=== PATIENT | female | born 1980 | race Caucasian/White ===

== ENCOUNTER 2022-09-27 14:10 | Emergency (ER) | payer SELFPAY ==
[2022-09-27 14:14] VITALS: BP 140/87; PULSE 85; RESP 18; TEMP 36.7; O2SAT 98; BMI 23.0
--- NOTE | 2022-09-27 14:20 | CT_ITS ---
The [address] [address] Patient Name: HILDA CANO MRN: [id number] date: 1980 Sex: F Assigned Patient Location: ER Current Patient Location: ER Accession/Order Number: [id number] Exam Date: 09/27/2022 14:40 Report Date: 09/27/2022 14:58 At the request of: NANCY HENDERSON Procedure: CT abdomen pelvis wo con EXAM: CT abdomen pelvis wo con HISTORY: Flank pain COMPARISON: None. TECHNIQUE: Axial CT images were obtained of the abdomen and pelvis without intravenous contrast. Multiplanar reconstructions were performed. ABDOMEN/PELVIS FINDINGS: Lower Chest: Unremarkable. Liver: Normal nonenhanced appearance and contour. Biliary/Gallbladder: Unremarkable. Pancreas: Unremarkable. Spleen: Multiple punctate calcifications are present in the spleen, likely due to remote granulomatous disease. Adrenal Glands: Unremarkable. Kidneys: Unremarkable. Gastrointestinal/Peritoneum: No acute abnormality. The appendix is unremarkable. There is a small volume of free fluid in the pelvis. Vascular: Unremarkable. Lymph Nodes: No enlarged lymph nodes by CT size criteria. Pelvic Organs: Tampon noted in the vaginal canal. The uterus is bulky in appearance. Bladder: Unremarkable. Bones: No acute osseous abnormality. Soft tissues: Unremarkable. CT/CT abdomen pelvis wo con IMPRESSION: 1. No acute abnormality of the abdomen and pelvis. 2. Tampon noted within the vaginal canal. 3. Bulky appearance of the uterus. 4. Small volume of pelvic free fluid. Electronically authenticated by: STEFANIA DOMINGUEZ Date: 09/27/2022 14:58
[2022-09-27 14:46] LABS: Bilirubin Urine SMALL (NEGATIVE); Blood Urine NEGATIVE (NEGATIVE); Clarity Urine CLEAR (CLEAR); Color Urine DK. YELLOW (YELLOW); Glucose Urine UA NEGATIVE (NEGATIVE); Ketones Urine NEGATIVE (NEGATIVE); Leukocyte Esterase Urine NEGATIVE (NEGATIVE); Nitrite Urine NEGATIVE (NEGATIVE); Protein Urine 30 mg/dL (NEG/TRACE); Specific Gravity Urine >=1.030 (1.005-1.025); pH Urine 5.5 (5.0-9.0)
[2022-09-27 14:48] LABS: Urine Microscopic Indicated YES
[2022-09-27 14:48] LABS: Basophils Absolute Auto 0.1 10^3/uL (0.0-0.1); Basophils Percent Auto 0.6 % (0.2-2.0); Eosinophils Absolute Auto 0.1 10^3/uL (0.0-0.7); Eosinophils Percent Auto 1.4 % (0.9-7.0); Hematocrit 43.6 % (36.0-48.0); Hemoglobin 14.8 g/dL (12.0-16.0); Immature Granulocytes Abs Auto 0.02 10^3/uL (0.00-0.03); Immature Granulocytes Pct Auto 0.2 % (0.0-0.5); Lymphocytes Absolute Auto 3.4 10^3/uL (1.2-3.8); Lymphocytes Percent Auto 33.9 % (20.5-60.0); Mean Corpuscular HGB Conc 33.9 g/dL (29.9-35.2); Mean Corpuscular Hemoglobin 29.9 pg (26.7-34.0); Mean Corpuscular Volume 88.1 fL (81.0-99.0); Mean Platelet Volume 9.8 fL (9.5-13.5); Monocytes Absolute Auto 0.6 10^3/uL (0.3-0.8); Monocytes Percent Auto 6.2 % (1.7-12.0); Neutrophils Absolute Auto 5.7 10^3/uL (1.4-6.5); Neutrophils Percent Auto 57.7 % (43.0-75.0); Platelet Count 363 10^3/uL (150-450); Red Blood Count 4.95 10^6/uL (4.20-5.40); Red Cell Distribution Width 13.3 % (11.0-15.0); White Blood Count 9.9 10^3/uL (4.0-11.0)
--- NOTE | 2022-09-27 14:51 | ED_ITS ---
Documented by User: ZIA Diaz 09/27/22 15:40 HPI - Abdominal Pain General Chief Complaint: Abdominal Pain Stated Complaint: LT FLANK PAIN Time Seen by Provider: 09/27/22 14:19 Source: patient Mode of arrival: walk-in Limitations: no limitations History of Present Illness HPI narrative: patient is a 41-year-old female presents to the emergency department for the evaluation of left flank pain for the last two weeks. She denies any mechanism of injury or trauma. She states pain is located in the left low back with radiation to the left side of the abdomen. She states it feels like a pinching pain. It is not worse with movement but she states when she lies flat she does have some relief. She has had no fevers, chills, nausea, vomiting, diarrhea. She denies urinary symptoms. She denies a possibility of . No medications taken prior to arrival Related Data Previous Rx's Medication Instructions Recorded ketorolac 10 mg tablet 10 mg PO TID PRN pain #10 tabs 09/27/22 methocarbamol 750 mg tablet 750 mg PO TID PRN pain #20 tabs 09/27/22 Allergies Allergy/AdvReac Type Severity Reaction Status Date / Time No Known Drug Allergies Allergy Verified 09/27/22 14:18 Review of Systems ROS Constitutional Denies: fever or chills Ears, nose, mouth, and throat Denies: throat pain Cardiovascular Denies: chest pain Respiratory Denies: shortness of breath or cough Gastrointestinal Reports: abdominal pain; Denies: nausea or vomiting Genitourinary Denies: painful urination Musculoskeletal Reports: back pain Integumentary/Breast Denies: rash Neurological Denies: headache Endocrine Denies: excessive urination Allergic/Immunologic Denies: hives Exam Narrative Exam Narrative: Gen.: Awake, alert, in no distress Head: Normocephalic, atraumatic ENT: Moist mucous membranes Respiratory: No respiratory distress, lungs clear bilaterally Cardio: Regular rate and rhythm Gastrointestinal: Abdomen is soft, nondistended and nontender to palpation; no CVA tenderness Extremities: Moves extremities equally Psych: Normal mood and affect Neuro: No focal neuro deficit Skin: Warm, dry, intact Constitutional Vital Signs, click to edit/add: Last Vital Signs Temp 98.1 F 09/27/22 14:14 Pulse 85 09/27/22 14:14 Resp 18 09/27/22 14:14 BP 140/87 09/27/22 14:14 Pulse Ox 98 09/27/22 14:14 O2 Del Method Room Air 09/27/22 14:14 Course Vital Signs Vital signs: Vital Signs Temperature 98.1 F 09/27/22 14:14 Pulse Rate 85 09/27/22 14:14 Respiratory Rate 18 09/27/22 14:14 Blood Pressure 140/87 09/27/22 14:14 Pulse Oximetry 98 09/27/22 14:14 Oxygen Delivery Method Room Air 09/27/22 14:14 Temperature 98.1 F 09/27/22 14:14 Pulse Rate 85 09/27/22 14:14 Respiratory Rate 18 09/27/22 14:14 Blood Pressure 140/87 09/27/22 14:14 Pulse Oximetry 98 09/27/22 14:14 Oxygen Delivery Method Room Air 09/27/22 14:14 MDM - Abdominal Pain MDM Narrative Medical decision making narrative: patient with stable vital signs in the Emergency Room, lab studies are unremarkable, urine specimen is unremarkable and CT of the abdomen and pelvis shows no evidence of acute abnormalities. Patient discharged home with NSAIDs, muscle relaxants follow-up with PCP. Return to the Emergency Room if symptoms change or worsen. Medical Records Attestation: I reviewed the patient's medical records. Lab Data Attestation: I reviewed the patient's lab results. Labs: Lab Results 09/27/22 09/27/22 Range/Units 14:25 14:34 WBC 9.9 (4.0-11.0) 10^3/uL RBC 4.95 (4.20-5.40) 10^6/uL Hgb 14.8 (12.0-16.0) g/dL Hct 43.6 (36.0-48.0) % MCV 88.1 (81.0-99.0) fL MCH 29.9 (26.7-34.0) pg MCHC 33.9 (29.9-35.2) g/dL RDW 13.3 (11.0-15.0) % Plt Count 363 (150-450) 10^3/uL MPV 9.8 (9.5-13.5) fL Neut % (Auto) 57.7 (43.0-75.0) % Lymph % (Auto) 33.9 (20.5-60.0) % [place] % (Auto) 6.2 (1.7-12.0) % Eos % (Auto) 1.4 (0.9-7.0) % Baso % (Auto) 0.6 (0.2-2.0) % Neut # (Auto) 5.7 (1.4-6.5) 10^3/uL Lymph # (Auto) 3.4 (1.2-3.8) 10^3/uL [place] # (Auto) 0.6 (0.3-0.8) 10^3/uL Eos # (Auto) 0.1 (0.0-0.7) 10^3/uL Baso # (Auto) 0.1 (0.0-0.1) 10^3/uL Abs Immat Gran (auto) 0.02 (0.00-0.03) 10^3/uL Imm/Tot Granulo (auto) 0.2 (0.0-0.5) % Sodium 140 (136-145) mmol/L Potassium 3.3 L (3.5-5.1) mmol/L Chloride 104 (98-107) mmol/L Carbon Dioxide 24.2 (21.0-32.0) mmol/L Anion Gap 15.1 BUN 11.0 (7.0-18.0) mg/dL Creatinine 0.87 (0.55-1.02) mg/dL Est GFR ( Amer) >60 (>=60) Est GFR (Non-Af Amer) >60 (>=60) BUN/Creatinine Ratio 12.6 Glucose 82 (74-106) mg/dL Calcium 9.0 (8.5-10.1) mg/dL Total Bilirubin 0.4 (0.2-1.0) mg/dL AST 12 L (15-37) U/L ALT 20 (14-59) U/L Alkaline Phosphatase 49 (46-116) U/L Total Protein 7.5 (6.4-8.2) g/dL Albumin 4.4 (3.4-5.0) g/dL Globulin 3.1 g/dL Albumin/Globulin Ratio 1.4 Urine Color Dk. yellow (YELLOW) Urine Clarity Clear (CLEAR) Urine pH 5.5 (5.0-9.0) Ur Specific [place] >=1.030 A (1.005-1.025) Urine Protein 30 A (NEG/TRACE) mg/dL Urine Glucose (UA) Negative (NEGATIVE) mg/dL Urine Ketones Negative (NEGATIVE) mg/dL Urine Occult Blood Negative (NEGATIVE) Urine Nitrite Negative (NEGATIVE) Urine Bilirubin Small A (NEGATIVE) Urine Urobilinogen 1.0 (0.2-1.0) EU/dL Ur Leukocyte Esterase Negative (NEGATIVE) Urine RBC None seen (0-2) #/HPF Urine WBC None seen (NONE SEEN) #/HPF Ur Squamous Epith Cells Moderate A (NONE/RARE) #/LPF Urine Crystals Seen A (None Seen) #/HPF Calcium Oxalate Crystal Moderate Urine Bacteria None seen (NONE SEEN) #/HPF Urine Casts Not Reportable Urine Mucus Large A (NONE SEEN) Ur Culture Indicated? No Urine HCG, Qual Negative (NEGATIVE) Imaging Data CT scan - abdomen: Attestation: I have reviewed the pertinent imaging results. Radiologist's impression: Procedure: CT abdomen pelvis wo con EXAM: CT abdomen pelvis wo con HISTORY: Flank pain COMPARISON: None. TECHNIQUE: Axial CT images were obtained of the abdomen and pelvis without intravenous contrast. Multiplanar reconstructions were performed. ABDOMEN/PELVIS FINDINGS: Lower Chest: Unremarkable. Liver: Normal nonenhanced appearance and contour. Biliary/Gallbladder: Unremarkable. Pancreas: Unremarkable. Spleen: Multiple punctate calcifications are present in the spleen, likely due to remote granulomatous disease. Adrenal Glands: Unremarkable. Kidneys: Unremarkable. Gastrointestinal/Peritoneum: No acute abnormality. The appendix is unremarkable. There is a small volume of free fluid in the pelvis. Vascular: Unremarkable. Lymph Nodes: No enlarged lymph nodes by CT size criteria. Pelvic Organs: Tampon noted in the vaginal canal. The uterus is bulky in appearance. Bladder: Unremarkable. Bones: No acute osseous abnormality. Soft tissues: Unremarkable. IMPRESSION: 1. No acute abnormality of the abdomen and pelvis. 2. Tampon noted within the vaginal canal. 3. Bulky appearance of the uterus. 4. Small volume of pelvic free fluid. Electronically authenticated by: STEFANIA DOMINGUEZ Date: 09/27/2022 14:58 Discharge Plan Discharge Chief Complaint: Abdominal Pain Clinical Impression: Abdominal wall pain in left flank Patient Disposition: Home, Self-Care Time of Disposition Decision: 15:39 Condition: Good Prescriptions / Home Meds: New ketorolac 10 mg tablet 10 mg PO TID PRN (Reason: pain) Qty: 10 0RF methocarbamol 750 mg tablet 750 mg PO TID PRN (Reason: pain) Qty: 20 0RF Instructions: Flank Pain (ED) Stand Alone Forms: Portal Instructions Referrals: ISSA CANO [Primary Care Provider] - 1 week Discharge Date/Time: 09/27/22 15:48 Documented by User: Meenakshi Nichole MD 09/27/22 17:13 HPI - Abdominal Pain General Chief Complaint: Abdominal Pain Stated Complaint: LT FLANK PAIN Time Seen by Provider: 09/27/22 14:19 Related Data Previous Rx's Medication Instructions Recorded ketorolac 10 mg tablet 10 mg PO TID PRN pain #10 tabs 09/27/22 methocarbamol 750 mg tablet 750 mg PO TID PRN pain #20 tabs 09/27/22 Allergies Allergy/AdvReac Type Severity Reaction Status Date / Time No Known Drug Allergies Allergy Verified 09/27/22 14:18 Exam Constitutional Vital Signs, click to edit/add: Last Vital Signs Temp 98.1 F 09/27/22 14:14 Pulse 85 09/27/22 14:14 Resp 18 09/27/22 14:14 BP 140/87 09/27/22 14:14 Pulse Ox 98 09/27/22 14:14 O2 Del Method Room Air 09/27/22 14:14 Course Vital Signs Vital signs: Vital Signs Temperature 98.1 F 09/27/22 14:14 Pulse Rate 85 09/27/22 14:14 Respiratory Rate 18 09/27/22 14:14 Blood Pressure 140/87 09/27/22 14:14 Pulse Oximetry 98 09/27/22 14:14 Oxygen Delivery Method Room Air 09/27/22 14:14 Temperature 98.1 F 09/27/22 14:14 Pulse Rate 85 09/27/22 14:14 Respiratory Rate 18 09/27/22 14:14 Blood Pressure 140/87 09/27/22 14:14 Pulse Oximetry 98 09/27/22 14:14 Oxygen Delivery Method Room Air 09/27/22 14:14 MDM - Abdominal Pain MDM Narrative Medical decision making narrative: patient with stable vital signs in the Emergency Room, lab studies are unremarkable, urine specimen is unremarkable and CT of the abdomen and pelvis shows no evidence of acute abnormalities. Patient discharged home with NSAIDs, muscle relaxants follow-up with PCP. Return to the Emergency Room if symptoms change or worsen. Attending physician attestation I have reviewed the mid-level documentation, agree with the documentation, medical decision making and treatment plan as outlined by the mid-level provider. Lab Data Labs: Lab Results 09/27/22 09/27/22 Range/Units 14:25 14:34 WBC 9.9 (4.0-11.0) 10^3/uL RBC 4.95 (4.20-5.40) 10^6/uL Hgb 14.8 (12.0-16.0) g/dL Hct 43.6 (36.0-48.0) % MCV 88.1 (81.0-99.0) fL MCH 29.9 (26.7-34.0) pg MCHC 33.9 (29.9-35.2) g/dL RDW 13.3 (11.0-15.0) % Plt Count 363 (150-450) 10^3/uL MPV 9.8 (9.5-13.5) fL Neut % (Auto) 57.7 (43.0-75.0) % Lymph % (Auto) 33.9 (20.5-60.0) % [place] % (Auto) 6.2 (1.7-12.0) % Eos % (Auto) 1.4 (0.9-7.0) % Baso % (Auto) 0.6 (0.2-2.0) % Neut # (Auto) 5.7 (1.4-6.5) 10^3/uL Lymph # (Auto) 3.4 (1.2-3.8) 10^3/uL [place] # (Auto) 0.6 (0.3-0.8) 10^3/uL Eos # (Auto) 0.1 (0.0-0.7) 10^3/uL Baso # (Auto) 0.1 (0.0-0.1) 10^3/uL Abs Immat Gran (auto) 0.02 (0.00-0.03) 10^3/uL Imm/Tot Granulo (auto) 0.2 (0.0-0.5) % Sodium 140 (136-145) mmol/L Potassium 3.3 L (3.5-5.1) mmol/L Chloride 104 (98-107) mmol/L Carbon Dioxide 24.2 (21.0-32.0) mmol/L Anion Gap 15.1 BUN 11.0 (7.0-18.0) mg/dL Creatinine 0.87 (0.55-1.02) mg/dL Est GFR ( Amer) >60 (>=60) Est GFR (Non-Af Amer) >60 (>=60) BUN/Creatinine Ratio 12.6 Glucose 82 (74-106) mg/dL Calcium 9.0 (8.5-10.1) mg/dL Total Bilirubin 0.4 (0.2-1.0) mg/dL AST 12 L (15-37) U/L ALT 20 (14-59) U/L Alkaline Phosphatase 49 (46-116) U/L Total Protein 7.5 (6.4-8.2) g/dL Albumin 4.4 (3.4-5.0) g/dL Globulin 3.1 g/dL Albumin/Globulin Ratio 1.4 Urine Color Dk. yellow (YELLOW) Urine Clarity Clear (CLEAR) Urine pH 5.5 (5.0-9.0) Ur Specific [place] >=1.030 A (1.005-1.025) Urine Protein 30 A (NEG/TRACE) mg/dL Urine Glucose (UA) Negative (NEGATIVE) mg/dL Urine Ketones Negative (NEGATIVE) mg/dL Urine Occult Blood Negative (NEGATIVE) Urine Nitrite Negative (NEGATIVE) Urine Bilirubin Small A (NEGATIVE) Urine Urobilinogen 1.0 (0.2-1.0) EU/dL Ur Leukocyte Esterase Negative (NEGATIVE) Urine RBC None seen (0-2) #/HPF Urine WBC None seen (NONE SEEN) #/HPF Ur Squamous Epith Cells Moderate A (NONE/RARE) #/LPF Urine Crystals Seen A (None Seen) #/HPF Calcium Oxalate Crystal Moderate Urine Bacteria None seen (NONE SEEN) #/HPF Urine Casts Not Reportable Urine Mucus Large A (NONE SEEN) Ur Culture Indicated? No Urine HCG, Qual Negative (NEGATIVE) Discharge Plan Discharge Chief Complaint: Abdominal Pain Clinical Impression: Abdominal wall pain in left flank Patient Disposition: Home, Self-Care Time of Disposition Decision: 15:39 Condition: Good Prescriptions / Home Meds: New ketorolac 10 mg tablet 10 mg PO TID PRN (Reason: pain) Qty: 10 0RF methocarbamol 750 mg tablet 750 mg PO TID PRN (Reason: pain) Qty: 20 0RF Instructions: Flank Pain (ED) Stand Alone Forms: Portal Instructions Referrals: ISSA CANO [Primary Care Provider] - 1 week Discharge Date/Time: 09/27/22 15:48
[2022-09-27 14:56] LABS: RBC Urine NONE SEEN #/HPF (0-2); WBC Urine NONE SEEN #/HPF (NONE SEEN)
[2022-09-27 14:57] LABS: Bacteria Urine NONE SEEN #/HPF (NONE SEEN); Calcium Oxalate Crystals Urine MODERATE; Crystals Seen? Seen #/HPF (None Seen); Mucus Urine LARGE (NONE SEEN); Squamous Epithelial Cell Urine MODERATE #/LPF (NONE/RARE)
[2022-09-27 14:58] LABS: Urine Culture Indicated NO
[2022-09-27 15:20] LABS: HCG Qualitative NEGATIVE (NEGATIVE)
[2022-09-27 15:33] LABS: Alanine Aminotransferase 20 U/L (14-59); Albumin Globulin Ratio 1.4; Albumin Level 4.4 g/dL (3.4-5.0); Alkaline Phosphatase 49 U/L (46-116); Anion Gap 15.1; Aspartate Amino Transferase 12 U/L (15-37); BUN Creatinine Ratio 12.6; Bilirubin Total 0.4 mg/dL (0.2-1.0); Carbon Dioxide 24.2 mmol/L (21.0-32.0); Chloride 104 mmol/L (98-107); Estimated GFR (African America >60 (>=60); Estimated GFR (Non-African Ame >60 (>=60); Globulin 3.1 g/dL; Glucose 82 mg/dL (74-106); Potassium 3.3 mmol/L (3.5-5.1); Sodium 140 mmol/L (136-145); Total Protein 7.5 g/dL (6.4-8.2)
== END 2022-09-27 15:48 | disposition home or self-care (01) ==
PROVIDERS: Physician Assistant; Emergency Provider Emergency Medicine; PCP Nurse Practitioner Family
DX: R10.9 Unspecified abdominal pain (principal)
CPT/HCPCS: 36415; 74176; 80053; 81001; 81003; 84703; 85025; 99284